=== PATIENT | female | born 1950 | race Caucasian/White ===

== ENCOUNTER 2019-06-07 18:21 | Inpatient (IN) | payer MEDICARE, MEDICAID ==
[~2019-06-07] VITALS: Ht 165.1 cm; Wt 107.0 kg
[~2019-06-07 18:21] MED LIST: ACET650S14 PR; ASCO500 PO; ASPI-556 PO; AUD NEB; BISA10SU11 PR; BUSP5TAB20 PO; CARV3 PO; CEFO2I IM; CHOL50004 PO; DULO30CA2 PO; ETOMIDATE 2 MG/ML 10 ML VIAL ONE; FURO80 PO; INSLAN SQ; INSU100V SQ; IPRNEB IH; ISOS30TA6 PO; LEVO50 PO; MOM30 PO; MULT1CAP32 PO; ONDA4 PO; RIVA20TA PO; TOPI25 PO; VECURONIUM BROMIDE 10 MG/VIAL ONE; ZOLP5 PO
[2019-06-07] MEDS ORDERED: SODIUM CHLORIDE 0.9% 1,000 ML IV ONE ×3 (18:27→20:15)
[2019-06-07] MEDS ORDERED: INSULIN REGULAR, HUMAN 100 UNITS/ML IVP ONE (18:30)
[2019-06-07] MEDS ORDERED: ACETAMINOPHEN 1000 MG/ISO-OSM 100 ML IV ONE (18:30)
[2019-06-07 18:36] LABS: ABG A-A DIFF O2 539.9 mmHg (10-20.0); ABG BASE EXCESS -8.6 mmol/L (-2.0-3.0); ABG CARBOXYHEMOGLOBIN 0.7 % (0.0-1.5); ABG HCO3 16.3 mmol/L (22.0-26.0); ABG METHEMOGLOBIN 0.2 % (0.0-1.5); ABG OXYGEN CONTENT 20.8 mL/dL (15.0-23.0); ABG OXYGEN SATURATION 94.3 % (95.0-98.0); ABG OXYHEMOGLOBIN 93.5 % (94.0-100.0); ABG TOTAL HEMOGLOBIN 15.8 G/dL (12.0-18.0); PO2, ARTERIAL BG 92.2 mmHg (79.0-87.0); SOURCE, BLOOD GAS ARTERIAL; TEMPERATURE, FAHRENHEIT, BG 98.6 FAHREN (96.0-98.6)
[2019-06-07 18:37] LABS: ABG PCO2 81 mmHg (35-45); O2 DEVICE,BLOOD GAS NON REBREATHER (ROOM AIR); SITE, BLOOD GAS RT RADIAL
[2019-06-07 18:49] LABS: BASOPHILS % (AUTO) 0.9 % (0.0-2.0); HEMATOCRIT 46.8 % (36-46); HEMOGLOBIN 14.8 g/dL (12.0-16.0); LYMPHOCYTES # (AUTO) 3.7 K/uL (1.0-4.8); LYMPHOCYTES % (AUTO) 17.4 % (22.0-44.0); MEAN CORPUSCULAR HEMOGLOBIN 33.2 pg (26.0-34.0); MEAN CORPUSCULAR HGB CONC 31.5 G/dL (31.0-37.0); MEAN CORPUSCULAR VOLUME 105 fL (80-100); MONOCYTES # (AUTO) 0.8 K/uL (0.1-1.0); MONOCYTES % (AUTO) 3.9 % (2.0-9.0); NEUTROPHILS # (AUTO) 14.8 K/uL (1.8-7.7); NEUTROPHILS % (AUTO) 68.8 % (40.0-70.0); PLATELET COUNT (AUTO) 253 K/uL (150-450); RED BLOOD CELL COUNT(AUTO) 4.44 MIL/uL (4.00-5.20); RED CELL DISTRIBUTION WIDTH 14.6 % (11.5-14.5)
[2019-06-07 19:00] LABS: INR 1.1 (0.9-1.1); PROTHROMBIN TIME 11.2 SEC (9.4-11.6)
[2019-06-07] MEDS ORDERED: PROPOFOL 1000 MG/ISO-OSM 100 ML IV PRN (19:00)
[2019-06-07] MEDS ORDERED: PIPERACILLIN/TAZO 3.375 GM/D5W 50 ML IV ONE (19:15)
[2019-06-07] MEDS ORDERED: LEVOFLOXACIN 500 MG/D5% WATER 100 ML IV ONE (19:15)
[2019-06-07 19:23] LABS: ALANINE AMINOTRANSFERASE 183 U/L (12-78); ALBUMIN 2.9 g/dL (3.4-5.0); ALKALINE PHOSPHATASE 208 U/L (46-116); ANION GAP 11 mmol/L (8-16); ASPARTATE AMINOTRANSFERASE 230 U/L (15-37); BILIRUBIN,TOTAL 0.6 mg/dL (0.1-1.0); CALCIUM, TOTAL 8.9 mg/dL (8.8-10.5); CARBON DIOXIDE 26 mmol/L (22-29); CHLORIDE 99 mmol/L (98-107); CREATINE KINASE, TOTAL ONLY 83 U/L (26-192); CREATININE 2.36 mg/dL (0.60-1.30); GLOMERULAR FILTR. RATE CALC 20 mL/min (>60); POTASSIUM 5.3 mmol/L (3.5-5.1); SODIUM SERUM 136 mmol/L (136-145); TOTAL PROTEIN, SERUM 6.7 g/dL (6.4-8.2); UREA NITROGEN, BLOOD 43 mg/dL (7-18)
[2019-06-07 19:26] LABS: GLUCOSE,RANDOM 503 mg/dL (70-110)
[2019-06-07] MEDS ORDERED: LORazepam 2 MG/ML VIAL IVP PRN (20:15)
[2019-06-07] MEDS ORDERED: ROCURONIUM BROMIDE 10 MG/ML 5 ML VIAL IVP PRN (20:15)
[2019-06-07] MEDS ORDERED: ONDANSETRON HCL 4 MG/2 ML VIAL IVP PRN ×2 (20:15→22:15)
[2019-06-07] MEDS ORDERED: ACETAMINOPHEN 325 MG TABLET PO PRN (20:15)
[2019-06-07 20:23] LABS: ABG A-A DIFF O2 310.8 mmHg (10-20.0); ABG BASE EXCESS -8.7 mmol/L (-2.0-3.0); ABG CARBOXYHEMOGLOBIN 0.7 % (0.0-1.5); ABG HCO3 17.2 mmol/L (22.0-26.0); ABG METHEMOGLOBIN 0.4 % (0.0-1.5); ABG OXYGEN CONTENT 22.1 mL/dL (15.0-23.0); ABG OXYGEN SATURATION 99.7 % (95.0-98.0); ABG OXYHEMOGLOBIN 98.6 % (94.0-100.0); ABG PCO2 56 mmHg (35-45); ABG PH 7.169 (7.35-7.450); ABG TOTAL HEMOGLOBIN 15.3 G/dL (12.0-18.0); PO2, ARTERIAL BG 346.5 mmHg (79.0-87.0); SITE, BLOOD GAS LFT RADIAL; SOURCE, BLOOD GAS ARTERIAL; TEMPERATURE, FAHRENHEIT, BG 98.6 FAHREN (96.0-98.6)
[2019-06-07 20:24] LABS: O2 DEVICE,BLOOD GAS VENTILATOR (ROOM AIR); PEEP,BG 5 cm H2O; VT, ABG 550 ml
[2019-06-07] MEDS ORDERED: LORazepam 2 MG/ML VIAL IVP ONE (21:30)
[2019-06-07 22:11] LABS: GLUCOSE,POINT OF CARE 406 MG/DL (70-110)
[2019-06-07] MEDS: CARVEDILOL 3.125 MG TABLET PO SCH (22:15)
[2019-06-07] MEDS: RIVAROXABAN 20 MG TABLET PO SCH (22:15)
[2019-06-07] MEDS ORDERED: IPRATROPIUM BROMIDE 0.5 MG/2.5 ML NEB SOLUTION NEB PRN (22:15)
[2019-06-07] MEDS ORDERED: ALBUTEROL SULFATE 2.5 MG/0.5 ML NEB SOLUTION NEB PRN (22:15)
[2019-06-07] MEDS ORDERED: 0.9% SODIUM CHLORIDE 10 ML SYRINGE IVP PRN (22:15)
[2019-06-07] MEDS ORDERED: INSULIN LISPRO 100 UNITS/ML SQ PRN (22:15)
[2019-06-07] MEDS ORDERED: DEXTROSE 50%-WATER 25 GM/50 ML SYRINGE IVP PRN ×2 (22:15→23:45)
[2019-06-07] MEDS ORDERED: *CLINICAL-LEVOFLOXACIN IVPB DOSING CLINICAL ONE (22:30)
[2019-06-07 22:52] LABS: APPEARANCE,URINE CLOUDY (CLEAR); BILIRUBIN,URINE NEGATIVE (NEGATIVE); GLUCOSE, URINE (UA) NEGATIVE (NEGATIVE); KETONES,URINE NEGATIVE (NEGATIVE); LEUKOCYTE ESTERASE ,URINE NEGATIVE (NEGATIVE); NITRATE,URINE NEGATIVE (NEGATIVE); OCCULT BLOOD,URINE NEGATIVE (NEGATIVE); PROTEIN,URINE POS 1+ (NEGATIVE); UROBILINOGEN,URINE 0.2 mg/dL (<=1.0)
[2019-06-07] MEDS ORDERED: LEVOFLOXACIN 250 MG/D5% WATER 50 ML IV ONE (23:00)
[2019-06-07 23:01] LABS: BACTERIA,URINE None Seen /HPF (None Seen); RBC,URINE None Seen /HPF (0-2); SQUAMOUS EPITHELIAL CELL,UR Rare /LPF (None Seen); WBC,URINE 0-2 /HPF (0-5)
[2019-06-07 23:02] LABS: AMORPHOUS SEDIMENT,UR Few /LPF (None Seen); COARSE GRANULAR CASTS,URINE 0-2 /LPF (None Seen)
[2019-06-07] MEDS ORDERED: INSULIN GLARGINE,HUM.REC.ANLOG 100 UNITS/ML SQ ONE (23:45)
[2019-06-08] VITALS: BP 94/65
[2019-06-08 00:24] LABS: CALCIUM, TOTAL 8.1 mg/dL (8.8-10.5); CREATININE 3.08 mg/dL (0.60-1.30)
[2019-06-08 00:26] LABS: POTASSIUM 6.1 mmol/L (3.5-5.1)
[2019-06-08] MEDS ORDERED: CALCIUM GLUCONATE 100 MG/ML 10 ML IVP ONE (01:00)
[2019-06-08] MEDS ORDERED: SODIUM POLYSTYRENE SULFONATE 15 GM/60 ML SUSPENSION BOTTLE PO ONE (01:00)
[2019-06-08] MEDS: IPRATROPIUM BROMIDE 0.5 MG/2.5 ML NEB SOLUTION NEB SCH ×4 (02:01→19:58)
[2019-06-08] MEDS: ALBUTEROL SULFATE 2.5 MG/0.5 ML NEB SOLUTION NEB SCH ×4 (02:02→19:58)
[2019-06-08] MEDS ORDERED: SODIUM CHLORIDE 0.9% 1,000 ML IV SCH (03:00)
[2019-06-08] MEDS: PIPERACILLIN/TAZO 3.375 GM/D5W 50 ML IV SCH ×4 (03:17→21:13)
[2019-06-08 04:00] VITALS: BP 109/76
[2019-06-08 05:15] LABS: BASOPHILS % (AUTO) 0.2 % (0.0-2.0); EOSINOPHILS % (AUTO) 0.6 % (1.0-6.0); HEMATOCRIT 45.1 % (36-46); HEMOGLOBIN 14.5 g/dL (12.0-16.0); LYMPHOCYTES # (AUTO) 1.5 K/uL (1.0-4.8); LYMPHOCYTES % (AUTO) 11.4 % (22.0-44.0); MEAN CORPUSCULAR HEMOGLOBIN 33.2 pg (26.0-34.0); MEAN CORPUSCULAR HGB CONC 32.1 G/dL (31.0-37.0); MEAN CORPUSCULAR VOLUME 103 fL (80-100); MONOCYTES # (AUTO) 0.6 K/uL (0.1-1.0); MONOCYTES % (AUTO) 4.9 % (2.0-9.0); NEUTROPHILS # (AUTO) 10.6 K/uL (1.8-7.7); NEUTROPHILS % (AUTO) 82.9 % (40.0-70.0); PLATELET COUNT (AUTO) 167 K/uL (150-450); RED BLOOD CELL COUNT(AUTO) 4.37 MIL/uL (4.00-5.20); RED CELL DISTRIBUTION WIDTH 14.6 % (11.5-14.5)
[2019-06-08 05:33] LABS: CALCIUM, TOTAL 8.7 mg/dL (8.8-10.5); CREATININE 3.02 mg/dL (0.60-1.30); MAGNESIUM 2.4 mg/dL (1.80-2.40); POTASSIUM 5.3 mmol/L (3.5-5.1)
[2019-06-08] MEDS: LEVOTHYROXINE SODIUM 50 MCG TABLET PO SCH (06:02)
[2019-06-08] MEDS: INSULIN LISPRO 100 UNITS/ML SQ PRN ×2 (06:05→16:08)
[2019-06-08 06:31] LABS: GLUCOSE,POINT OF CARE 472 MG/DL (70-110)
[2019-06-08 06:31] LABS: GLUCOSE,POINT OF CARE 376 MG/DL (70-110)
[2019-06-08 08:00] VITALS: BP 80/83
[2019-06-08] MEDS: CARVEDILOL 3.125 MG TABLET PO SCH ×2 (09:00→21:00)
[2019-06-08] MEDS: ISOSORBIDE MONONITRATE 30 MG ER TABLET PO SCH (09:00)
[2019-06-08] MEDS: BusPIRone HCL 5 MG TABLET PO SCH ×2 (09:20→21:12)
[2019-06-08] MEDS: DULoxetine HCL 30 MG CAPSULE PO SCH ×2 (09:21→21:12)
[2019-06-08] MEDS: CHOLECALCIFEROL (VIT D3) 5,000 UNITS CAPSULE PO SCH (09:21)
[2019-06-08] MEDS: PANTOPRAZOLE SODIUM 40 MG DR TABLET PO SCH (09:21)
[2019-06-08] MEDS: ASPIRIN 81 MG EC TABLET PO SCH (09:56)
[2019-06-08] MEDS ORDERED: SODIUM CHLORIDE 0.9% 500 ML IV ONE (10:13)
[2019-06-08 11:48] LABS: BASOPHILS % (AUTO) 0.5 % (0.0-2.0); EOSINOPHILS % (AUTO) 0.8 % (1.0-6.0); HEMATOCRIT 41.9 % (36-46); HEMOGLOBIN 13.4 g/dL (12.0-16.0); LYMPHOCYTES # (AUTO) 1.3 K/uL (1.0-4.8); LYMPHOCYTES % (AUTO) 10.9 % (22.0-44.0); MEAN CORPUSCULAR HEMOGLOBIN 32.7 pg (26.0-34.0); MEAN CORPUSCULAR HGB CONC 32.1 G/dL (31.0-37.0); MEAN CORPUSCULAR VOLUME 102 fL (80-100); MONOCYTES # (AUTO) 0.4 K/uL (0.1-1.0); MONOCYTES % (AUTO) 3.4 % (2.0-9.0); NEUTROPHILS # (AUTO) 9.9 K/uL (1.8-7.7); NEUTROPHILS % (AUTO) 84.4 % (40.0-70.0); PLATELET COUNT (AUTO) 160 K/uL (150-450); RED BLOOD CELL COUNT(AUTO) 4.11 MIL/uL (4.00-5.20); RED CELL DISTRIBUTION WIDTH 14.3 % (11.5-14.5)
[2019-06-08 11:59] LABS: CALCIUM, TOTAL 8.5 mg/dL (8.8-10.5); CREATININE 3.47 mg/dL (0.60-1.30); POTASSIUM 4.4 mmol/L (3.5-5.1)
[2019-06-08 12:00] VITALS: BP 107/61
[2019-06-08 12:03] LABS: MAGNESIUM 2.3 mg/dL (1.80-2.40)
[2019-06-08] MEDS ORDERED: SODIUM CHLORIDE 0.9% 250 ML IV ONE ×2 (12:24→21:10)
[2019-06-08] MEDS: NOREPINEPHRINE 4 MG/D5%-WATER 250 ML IV PRN ×2 (13:00→23:02)
[2019-06-08 13:14] LABS: ABG A-A DIFF O2 208.9 mmHg (10-20.0); ABG BASE EXCESS -6.6 mmol/L (-2.0-3.0); ABG CARBOXYHEMOGLOBIN 0.9 % (0.0-1.5); ABG HCO3 19.6 mmol/L (22.0-26.0); ABG METHEMOGLOBIN 0.3 % (0.0-1.5); ABG OXYGEN CONTENT 19.6 mL/dL (15.0-23.0); ABG OXYGEN SATURATION 97.4 % (95.0-98.0); ABG OXYHEMOGLOBIN 96.2 % (94.0-100.0); ABG PCO2 40 mmHg (35-45); ABG PH 7.311 (7.35-7.450); ABG TOTAL HEMOGLOBIN 14.4 G/dL (12.0-18.0); SOURCE, BLOOD GAS ARTERIAL; TEMPERATURE, FAHRENHEIT, BG 99.9 FAHREN (96.0-98.6)
[2019-06-08] MEDS ORDERED: PROPOFOL 1000 MG/ISO-OSM 100 ML IV PRN ×3 (13:15→17:59)
[2019-06-08 13:17] LABS: O2 DEVICE,BLOOD GAS VENTILATOR (ROOM AIR); PEEP,BG 0 cm H2O; SITE, BLOOD GAS ARTERIAL LINE; VT, ABG 16 ml
[2019-06-08 16:00] VITALS: BP 139/63
[2019-06-08] MEDS ORDERED: EPINEPHrine 1:10,000 [1 MG/10 ML] SYRINGE ONE (18:01)
[2019-06-08 18:52] LABS: BASOPHILS % (AUTO) 0.4 % (0.0-2.0); LYMPHOCYTES # (AUTO) 1.7 K/uL (1.0-4.8); LYMPHOCYTES % (AUTO) 11.6 % (22.0-44.0); MEAN CORPUSCULAR HEMOGLOBIN 32.6 pg (26.0-34.0); MEAN CORPUSCULAR HGB CONC 31.9 G/dL (31.0-37.0); MEAN CORPUSCULAR VOLUME 102 fL (80-100); MONOCYTES # (AUTO) 0.7 K/uL (0.1-1.0); MONOCYTES % (AUTO) 4.4 % (2.0-9.0); NEUTROPHILS # (AUTO) 12.3 K/uL (1.8-7.7); NEUTROPHILS % (AUTO) 82.6 % (40.0-70.0); PLATELET COUNT (AUTO) 172 K/uL (150-450); RED CELL DISTRIBUTION WIDTH 14.3 % (11.5-14.5)
[2019-06-08 19:04] LABS: CALCIUM, TOTAL 8.4 mg/dL (8.8-10.5); CREATININE 3.24 mg/dL (0.60-1.30); MAGNESIUM 2.3 mg/dL (1.80-2.40); PHOSPHORUS 4.7 mg/dL (2.5-4.9); POTASSIUM 4.6 mmol/L (3.5-5.1)
[2019-06-08] MEDS: PROPOFOL 1000 MG/ISO-OSM 100 ML IV PRN ×2 (19:10→22:02)
[2019-06-08] MEDS: RIVAROXABAN 20 MG TABLET PO SCH (19:11)
[2019-06-08 19:42] LABS: ABG A-A DIFF O2 157.2 mmHg (10-20.0); ABG BASE EXCESS -9.1 mmol/L (-2.0-3.0); ABG CARBOXYHEMOGLOBIN 0.8 % (0.0-1.5); ABG HCO3 17.3 mmol/L (22.0-26.0); ABG METHEMOGLOBIN 0.3 % (0.0-1.5); ABG OXYGEN CONTENT 21.1 mL/dL (15.0-23.0); ABG OXYGEN SATURATION 99.2 % (95.0-98.0); ABG OXYHEMOGLOBIN 98.1 % (94.0-100.0); ABG PCO2 38 mmHg (35-45); ABG PH 7.284 (7.35-7.450); PO2, ARTERIAL BG 163.3 mmHg (79.0-87.0); SITE, BLOOD GAS ARTERIAL LINE; SOURCE, BLOOD GAS ARTERIAL; TEMPERATURE, FAHRENHEIT, BG 88.5 FAHREN (96.0-98.6)
[2019-06-08 19:43] LABS: O2 DEVICE,BLOOD GAS VENTILATOR (ROOM AIR); VT, ABG 550 ml
[2019-06-08 20:00] VITALS: BP 104/64
[2019-06-08 20:16] LABS: GLUCOSE,POINT OF CARE 310 MG/DL (70-110)
[2019-06-08 22:26] LABS: CALCIUM, TOTAL 8.4 mg/dL (8.8-10.5); CREATININE 3.06 mg/dL (0.60-1.30); POTASSIUM 4.2 mmol/L (3.5-5.1)
[2019-06-08 22:31] LABS: ALBUMIN 2.6 g/dL (3.4-5.0); BILIRUBIN,TOTAL 0.6 mg/dL (0.1-1.0); MAGNESIUM 2.3 mg/dL (1.80-2.40); PHOSPHORUS 3.9 mg/dL (2.5-4.9); TOTAL PROTEIN, SERUM 6.3 g/dL (6.4-8.2)
[2019-06-09] VITALS: BP 127/79
[2019-06-09] MEDS ORDERED: SODIUM CHLORIDE 0.9% 1,000 ML IV SCH
[2019-06-09] MEDS: INSULIN LISPRO 100 UNITS/ML SQ PRN ×3 (00:17→12:56)
[2019-06-09] MEDS: PROPOFOL 1000 MG/ISO-OSM 100 ML IV PRN ×5 (00:52→14:23)
[2019-06-09 01:55] LABS: SOURCE, BLOOD GAS ARTERIAL; TEMPERATURE, FAHRENHEIT, BG 90.5 FAHREN (96.0-98.6)
[2019-06-09 01:57] LABS: ABG A-A DIFF O2 244.1 mmHg (10-20.0); ABG BASE EXCESS -10.2 mmol/L (-2.0-3.0); ABG CARBOXYHEMOGLOBIN 0.8 % (0.0-1.5); ABG HCO3 17.6 mmol/L (22.0-26.0); ABG METHEMOGLOBIN 0.1 % (0.0-1.5); ABG OXYGEN CONTENT 20.6 mL/dL (15.0-23.0); ABG OXYGEN SATURATION 98.6 % (95.0-98.0); ABG OXYHEMOGLOBIN 97.7 % (94.0-100.0); ABG PCO2 25 mmHg (35-45); ABG PH 7.396 (7.35-7.450); ABG TOTAL HEMOGLOBIN 14.9 G/dL (12.0-18.0); PO2, ARTERIAL BG 89.5 mmHg (79.0-87.0)
[2019-06-09] MEDS: IPRATROPIUM BROMIDE 0.5 MG/2.5 ML NEB SOLUTION NEB SCH ×5 (02:04→20:00)
[2019-06-09] MEDS: ALBUTEROL SULFATE 2.5 MG/0.5 ML NEB SOLUTION NEB SCH ×5 (02:04→20:00)
[2019-06-09 02:15] LABS: O2 DEVICE,BLOOD GAS VENTILATOR (ROOM AIR); SITE, BLOOD GAS ARTERIAL LINE; VT, ABG 550 ml
[2019-06-09] MEDS: PIPERACILLIN/TAZO 3.375 GM/D5W 50 ML IV SCH ×4 (03:07→21:00)
[2019-06-09 03:44] LABS: CREATININE,URINE RANDOM 10.7 mg/dL (30.0-125.0)
[2019-06-09 04:00] VITALS: BP 151/72
[2019-06-09 04:48] LABS: BASOPHILS % (AUTO) 0.7 % (0.0-2.0); EOSINOPHILS % (AUTO) 5.9 % (1.0-6.0); HEMOGLOBIN 14.2 g/dL (12.0-16.0); LYMPHOCYTES # (AUTO) 1.8 K/uL (1.0-4.8); LYMPHOCYTES % (AUTO) 13.8 % (22.0-44.0); MEAN CORPUSCULAR HEMOGLOBIN 33.1 pg (26.0-34.0); MEAN CORPUSCULAR VOLUME 100 fL (80-100); MONOCYTES # (AUTO) 0.7 K/uL (0.1-1.0); NEUTROPHILS # (AUTO) 9.7 K/uL (1.8-7.7); NEUTROPHILS % (AUTO) 74.6 % (40.0-70.0); PLATELET COUNT (AUTO) 140 K/uL (150-450); RED BLOOD CELL COUNT(AUTO) 4.29 MIL/uL (4.00-5.20); RED CELL DISTRIBUTION WIDTH 14.1 % (11.5-14.5)
[2019-06-09] MEDS: NOREPINEPHRINE 4 MG/D5%-WATER 250 ML IV PRN ×3 (05:06→09:26)
[2019-06-09 05:12] LABS: ALBUMIN 2.5 g/dL (3.4-5.0); BILIRUBIN,TOTAL 0.7 mg/dL (0.1-1.0); CALCIUM, TOTAL 8.3 mg/dL (8.8-10.5); CREATININE 2.89 mg/dL (0.60-1.30); MAGNESIUM 2.2 mg/dL (1.80-2.40); PHOSPHORUS 2.9 mg/dL (2.5-4.9); POTASSIUM 3.1 mmol/L (3.5-5.1); THYROID STIMULATING HORMONE 0.71 uIU/mL (0.36-3.74); TOTAL PROTEIN, SERUM 5.6 g/dL (6.4-8.2)
[2019-06-09] MEDS: LEVOTHYROXINE SODIUM 50 MCG TABLET PO SCH (05:35)
[2019-06-09] MEDS: POTASSIUM CHL 10 MEQ/WATER 50 ML IV SCH ×6 (05:49→09:15)
[2019-06-09 07:00] LABS: GLUCOSE,POINT OF CARE 255 MG/DL (70-110)
[2019-06-09 07:00] LABS: GLUCOSE,POINT OF CARE 245 MG/DL (70-110)
[2019-06-09 08:00] VITALS: BP 113/61
[2019-06-09 08:06] LABS: ABG BASE EXCESS -8.2 mmol/L (-2.0-3.0); ABG CARBOXYHEMOGLOBIN 0.5 % (0.0-1.5); ABG HCO3 18.7 mmol/L (22.0-26.0); ABG METHEMOGLOBIN 0.2 % (0.0-1.5); ABG OXYGEN CONTENT 21.9 mL/dL (15.0-23.0); ABG OXYGEN SATURATION 98.8 % (95.0-98.0); ABG OXYHEMOGLOBIN 98.1 % (94.0-100.0); ABG PCO2 30 mmHg (35-45); ABG PH 7.378 (7.35-7.450); ABG TOTAL HEMOGLOBIN 15.7 G/dL (12.0-18.0); SOURCE, BLOOD GAS ARTERIAL
[2019-06-09 08:08] LABS: SITE, BLOOD GAS ARTERIAL LINE
[2019-06-09 08:09] LABS: PEEP,BG 0 cm H2O; VT, ABG 550 ml
[2019-06-09] MEDS: ASPIRIN 81 MG EC TABLET PO SCH (09:00)
[2019-06-09] MEDS: DULoxetine HCL 30 MG CAPSULE PO SCH ×2 (09:00→21:00)
[2019-06-09] MEDS: PANTOPRAZOLE SODIUM 40 MG DR TABLET PO SCH (09:00)
[2019-06-09] MEDS: CARVEDILOL 3.125 MG TABLET PO SCH ×2 (09:00→21:00)
[2019-06-09] MEDS: BusPIRone HCL 5 MG TABLET PO SCH ×2 (09:00→21:00)
[2019-06-09] MEDS: ISOSORBIDE MONONITRATE 30 MG ER TABLET PO SCH (09:00)
[2019-06-09] MEDS: CHOLECALCIFEROL (VIT D3) 5,000 UNITS CAPSULE PO SCH (09:00)
[2019-06-09 11:00] LABS: ALBUMIN 2.4 g/dL (3.4-5.0); BILIRUBIN,TOTAL 0.6 mg/dL (0.1-1.0); CALCIUM, TOTAL 8.5 mg/dL (8.8-10.5); CREATININE 2.99 mg/dL (0.60-1.30); MAGNESIUM 2.1 mg/dL (1.80-2.40); PHOSPHORUS 3.2 mg/dL (2.5-4.9); POTASSIUM 3.6 mmol/L (3.5-5.1); TOTAL PROTEIN, SERUM 6.2 g/dL (6.4-8.2)
[2019-06-09 12:00] VITALS: BP 146/72
[2019-06-09] MEDS ORDERED: MORPHINE SULFATE 100 MG/NS/PF 100 ML IV PRN (14:45)
[2019-06-09 16:00] VITALS: BP 106/73
[2019-06-09] MEDS: RIVAROXABAN 20 MG TABLET PO SCH (17:30)
[2019-06-09 20:04] VITALS: BP 116/57
[2019-06-09] MEDS ORDERED: LEVOFLOXACIN 750 MG/D5% WATER 150 ML IV SCH (21:00)
[2019-06-09 21:55] LABS: GLUCOSE,POINT OF CARE 257 MG/DL (70-110)
[2019-06-10] VITALS (7 sets, daily range): BP systolic 90–149; BP diastolic 55–75
[2019-06-10] MEDS ORDERED: ACETAMINOPHEN 650 MG RECTAL SUPPOSITORY PR PRN (18:30)
[2019-06-11 03:55] VITALS: BP 132/60
[2019-06-11 07:39] VITALS: BP 111/49
[2019-06-11 11:30] VITALS: BP 114/58
[2019-06-11 15:27] VITALS: BP 117/56
[2019-06-11 19:39] VITALS: BP 146/67
== END 2019-06-11 20:05 | DRG 871 ==
LOC: EMS 18:22 → ICU 20:26 → 4E 06-09 18:30
PROVIDERS: ADMIT Internal Medicine; ATTEND Internal Medicine
PROC: 5A1945Z Respiratory Ventilation, 24-96 Consecutive Hours (ICD-10-PCS; principal; 2019-06-07)
PROC: 0BH17EZ Insertion of Endotracheal Airway into Trachea, Via Natural or Artificial Opening (ICD-10-PCS; 2019-06-07)
PROC: 03HY32Z Insertion of Monitoring Device into Upper Artery, Percutaneous Approach (ICD-10-PCS; 2019-06-08)
PROC: 06HY33Z Insertion of Infusion Device into Lower Vein, Percutaneous Approach (ICD-10-PCS; 2019-06-08)
PROC: 5A12012 Performance of Cardiac Output, Single, Manual (ICD-10-PCS; 2019-06-08)
DX: A41.9 Sepsis, unspecified organism (principal); J96.02 Acute respiratory failure with hypercapnia; I46.9 Cardiac arrest, cause unspecified; J18.9 Pneumonia, unspecified organism; N17.0 Acute kidney failure with tubular necrosis; I50.21 Acute systolic (congestive) heart failure; I13.0 Hypertensive heart and chronic kidney disease with heart failure and stage 1 through stage 4 chronic kidney disease, or unspecified chronic kidney disease; N18.4 Chronic kidney disease, stage 4 (severe); I69.354 Hemiplegia and hemiparesis following cerebral infarction affecting left non-dominant side; E03.9 Hypothyroidism, unspecified; E11.22 Type 2 diabetes mellitus with diabetic chronic kidney disease; E78.5 Hyperlipidemia, unspecified; E87.5 Hyperkalemia; E87.6 Hypokalemia; I25.5 Ischemic cardiomyopathy; I48.0 Paroxysmal atrial fibrillation; F32.9 Major depressive disorder, single episode, unspecified; I25.10 Atherosclerotic heart disease of native coronary artery without angina pectoris; Z66 Do not resuscitate; Z51.5 Encounter for palliative care; Z79.899 Other long term (current) drug therapy; Z83.3 Family history of diabetes mellitus; Z87.891 Personal history of nicotine dependence; Z90.49 Acquired absence of other specified parts of digestive tract; Z95.0 Presence of cardiac pacemaker; Z95.5 Presence of coronary angioplasty implant and graft; Z79.4 Long term (current) use of insulin
CPT/HCPCS: 31500; 36600; 51702; 70450; 82570; 82805; 83605; 83735; 84100; 84300; 84443; 84540; 87040; 87070; 87081; 87205; 93005; 93306; 94002; 94003; 94640; 99291; G0378; J0131; J0171; J0610; J1815; J1956; J2060; J2270; J2543; J2704; J3480; J3490; J7030; J7040; J7050